=== PATIENT | female | born 2000 | race Hispanic/Latino ===

== ENCOUNTER 2022-01-14 19:20 | Emergency (ER) | payer OTHER ==
[~2022-01-14] VITALS: Ht 152.4 cm; Wt 59.0 kg
[2022-01-14] MEDS ORDERED: PREDNISONE20 MG PO (20:04)
== END 2022-01-14 20:25 | disposition home or self-care (01) ==
LOC: FSED 19:27
DX: L25.9 Unspecified contact dermatitis, unspecified cause (principal)
CPT/HCPCS: 99282